=== PATIENT | female | born 1955 | race Caucasian/White ===

== ENCOUNTER 2024-05-03 16:56 | Emergency (ER) | payer OTHER, SELFPAY ==
[2024-05-03 17:11] VITALS: BP 153/77
--- NOTE | 2024-05-03 17:11 | ED.GENMED ---
ED Provider Triage
<Kel Alexander PA-C - Last Filed: 05/03/24 17:23>
-
Patient seen by provider in Triage?: Seen in Triage
69-year-old female presents via EMS from [facility] with vomiting. She vomited twice yesterday but since then has been feeling okay. She denies any current chest pain abdominal pain or shortness of breath. No urinary symptoms. No complaints
offer however patient is a poor historian
Workup initiated through triage with basic labs. Vital signs are stable. Note from provider at facility requesting imaging studies of her abdomen. CT pending
Seen by provider in triage but warrants further assessment
History of Present Illness
<Kel Alexander PA-C - Last Filed: 05/03/24 17:23>
General
Chief Complaint: Abdominal Symptoms
Time Seen by Provider: 05/03/24 20:47
<Dann Woodward DO, Resident - Last Filed: 05/03/24 23:21>
General
Source: patient and records
History of Present Illness
History of Present Illness:
69 female with a past medical history of seizure disorder, reportedly on Dilantin (but unsure) presents from [facility] for 2 episodes of vomiting yesterday. Patient is a poor historian. Patient reports she had 2 isolated episodes of vomiting
yesterday, nonbloody, nonprojectile. Patient reports she has had no sick contacts that she is aware of. Reports no abnormal food eaten that she is aware of. In the emergency department patient says she has no active symptoms at this time.
Patient denies any diarrhea, no nausea, denies fever, denies abdominal pain, no shortness of breath, no chest pain. Per EMS she has a history of liver cirrhosis and had 1 episode of desaturation to the 80s requiring 2 L nasal cannula.
Past History
<Dann Woodward DO, Resident - Last Filed: 05/03/24 23:21>
Past History
ED Past Medical History: Seizures
Review of Systems
<Dann Woodward DO, Resident - Last Filed: 05/03/24 23:21>
Review of Systems
Constitutional: Reports no symptoms; Denies fever, fatigue or chills
Respiratory: Reports no symptoms
Cardiac: Reports no symptoms
ABD/GI: Reports vomiting; Denies abdominal pain, nausea or diarrhea
: Reports no symptoms
Musculoskeletal: Reports edema
Phy Exam
<Dann Woodward DO, Resident - Last Filed: 05/03/24 23:21>
General Physical Exam
General Presentation: well appearing and no apparent distress
General Skin: warm and dry
Cardiovascular Exam
Cardiovascular Exam: regular rate/rhythm and systolic murmur (Systolic murmur heard on exam)
Pulmonary Exam
Pulmonary Exam: other (Could not auscultate due to poor respiratory effort.)
Gastrointestinal Exam
Gastrointestinal Exam: non tender, soft, distended and other (Abdomen soft, nontender to palpation. No rebound, no guarding. Abdomen is diffusely distended. No fluid shift present.)
Musculoskeletal Exam
Musculoskeletal Exam: edema (+3 edema bilateral lower extremities)
Skin Exam
Skin Exam: other (Red, angry looking blotchy rash present along bilateral buttocks and inner thighs)
Course
<Kel Alexander PA-C - Last Filed: 05/03/24 17:23>
Orders/Labs/Results
Orders:
Orders
05/03/24 17:44
Complete Blood Count/With Diff Urgent
Comprehensive Metabolic Panel Urgent
Lipase Urgent
05/03/24 21:27
US Abdomen Complete/Upper Urgent
Comment:
Reason For Exam: Abnormal LFTs, abdominal distention
05/04/24 00:00
CT Abd/pelvis W Iv Cont Urgent
Comment: Pancreatic protocol please
Reason For Exam: Pancreatic cyst, abdominal distention, cirrhosis
Abnormal Lab Results
05/03/24
17:44
RBC 3.24 L 10^6/uL
(4.20-5.40)
Hct 36.0 L %
(37.0-47.0)
MCV 111.1 H fL
(81.0-99.0)
MCH 38.3 H pg
(27.0-31.0)
RDW 15.3 H %
(11.5-14.5)
Plt Count 84 L 10^3/uL
(130-400)
Absolute Lymphs (auto) 1.1 L 10^3/uL
(1.2-3.4)
Lymphocytes % 14.5 L %
(20.5-51.1)
BUN 18 H mg/dl
(7-17)
Total Bilirubin 2.4 H mg/dl
(0.2-1.3)
AST 54 H U/L
(14-36)
ALT 43 H U/L
(0-35)
Albumin 2.9 L g/dl
(3.5-5.0)
05/03/24 17:44
05/03/24 17:44
Vital Signs
Initial and Last Documented VS:
Initial Vital Signs
Temp Pulse Resp BP Pulse Ox
98.1 F 74 16 153/77 95
05/03/24 17:11 05/03/24 17:11 05/03/24 17:11 05/03/24 17:11 05/03/24 17:11
Last Documented Vital Signs
Temp Pulse Resp BP Pulse Ox
98.1 F 75 19 110/75 95
05/03/24 17:11 05/03/24 22:11 05/03/24 22:11 05/04/24 01:00 05/04/24 01:00
<Dnan Fekete, DO, Resident - Last Filed: 05/03/24 23:21>
Orders/Labs/Results
Orders:
Orders
05/03/24 17:44
Complete Blood Count/With Diff Urgent
Comprehensive Metabolic Panel Urgent
Lipase Urgent
05/03/24 21:27
US Abdomen Complete/Upper Urgent
Comment:
Reason For Exam: Abnormal LFTs, abdominal distention
05/04/24 00:00
CT Abd/pelvis W Iv Cont Urgent
Comment: Pancreatic protocol please
Reason For Exam: Pancreatic cyst, abdominal distention, cirrhosis
Abnormal Lab Results
05/03/24
17:44
RBC 3.24 L 10^6/uL
(4.20-5.40)
Hct 36.0 L %
(37.0-47.0)
MCV 111.1 H fL
(81.0-99.0)
MCH 38.3 H pg
(27.0-31.0)
RDW 15.3 H %
(11.5-14.5)
Plt Count 84 L 10^3/uL
(130-400)
Absolute Lymphs (auto) 1.1 L 10^3/uL
(1.2-3.4)
Lymphocytes % 14.5 L %
(20.5-51.1)
BUN 18 H mg/dl
(7-17)
Total Bilirubin 2.4 H mg/dl
(0.2-1.3)
AST 54 H U/L
(14-36)
ALT 43 H U/L
(0-35)
Albumin 2.9 L g/dl
(3.5-5.0)
05/03/24 17:44
05/03/24 17:44
Vital Signs
Initial and Last Documented VS:
Initial Vital Signs
Temp Pulse Resp BP Pulse Ox
98.1 F 74 16 153/77 95
05/03/24 17:11 05/03/24 17:11 05/03/24 17:11 05/03/24 17:11 05/03/24 17:11
Last Documented Vital Signs
Temp Pulse Resp BP Pulse Ox
98.1 F 75 19 110/75 95
05/03/24 17:11 05/03/24 22:11 05/03/24 22:11 05/04/24 01:00 05/04/24 01:00
<Noam Nuñez MD - Last Filed: 05/04/24 01:48>
Orders/Labs/Results
Orders:
Orders
05/03/24 17:44
Complete Blood Count/With Diff Urgent
Comprehensive Metabolic Panel Urgent
Lipase Urgent
05/03/24 21:27
US Abdomen Complete/Upper Urgent
Comment:
Reason For Exam: Abnormal LFTs, abdominal distention
05/04/24 00:00
CT Abd/pelvis W Iv Cont Urgent
Comment: Pancreatic protocol please
Reason For Exam: Pancreatic cyst, abdominal distention, cirrhosis
Abnormal Lab Results
05/03/24
17:44
RBC 3.24 L 10^6/uL
(4.20-5.40)
Hct 36.0 L %
(37.0-47.0)
MCV 111.1 H fL
(81.0-99.0)
MCH 38.3 H pg
(27.0-31.0)
RDW 15.3 H %
(11.5-14.5)
Plt Count 84 L 10^3/uL
(130-400)
Absolute Lymphs (auto) 1.1 L 10^3/uL
(1.2-3.4)
Lymphocytes % 14.5 L %
(20.5-51.1)
BUN 18 H mg/dl
(7-17)
Total Bilirubin 2.4 H mg/dl
(0.2-1.3)
AST 54 H U/L
(14-36)
ALT 43 H U/L
(0-35)
Albumin 2.9 L g/dl
(3.5-5.0)
05/03/24 17:44
05/03/24 17:44
Vital Signs
Initial and Last Documented VS:
Initial Vital Signs
Temp Pulse Resp BP Pulse Ox
98.1 F 74 16 153/77 95
05/03/24 17:11 05/03/24 17:11 05/03/24 17:11 05/03/24 17:11 05/03/24 17:11
Last Documented Vital Signs
Temp Pulse Resp BP Pulse Ox
98.1 F 75 19 110/75 95
05/03/24 17:11 05/03/24 22:11 05/03/24 22:11 05/04/24 01:00 05/04/24 01:00
<Dann Woodward DO, Resident - Last Filed: 05/03/24 23:21>
MDM/Problems Addressed
Differential Diagnosis Includes:
Food poisoning, acute viral GI illness, idiopathic vomiting
MDM/Problems Addressed:
69 female past medical history of seizures on Dilantin (patient unsure) with no recent seizures presents for 2 episodes of nonbloody, nonprojectile vomiting yesterday.
Patient was sent here from [facility] via ambulance. Patient reports she has had no known sick contacts she is aware of and has not eaten anything abnormal that she is aware of.
Patient reports she has had no episodes of vomiting today. In the emergency department she reports she has no current symptoms. Patient denies nausea associated with her vomiting, has had no diarrhea, no fever, no shortness of breath, no abdominal
pain. Does admit to lower extremity edema.
Emergency department patient is hypertensive, afebrile, other vitals within normal limits.
Physical exam demonstrates a benign but distended abdomen. No rebound, no guarding. Nontender to palpation in all quadrants. Abdomen is grossly distended, no fluid shift. Heart had a systolic murmur. Lungs were unable to be auscultated due to
poor respiratory effort by patient. +3 lower extremity edema bilateral.
White count within normal limits, hemoglobin within normal limits, chemistry did demonstrate elevated T bilirubin, slightly elevated LFTs and low albumin
Unsure etiology of patient's vomiting. Could be secondary to viral GI illness, could be food poisoning, could be isolated episodes of vomiting.
At this point she has no symptoms, no nausea, no diarrhea. Will hold off on antiemetics at this time
Per EMS has a past medical history of liver cirrhosis, also had 1 isolated episode of desaturation to the requiring 2 L O2 prior to arrival
Patient currently satting 95% on room air
Will check ultrasound abdomen complete
Complete abdominal ultrasound demonstrated hepatic cirrhosis with no discrete hepatic lesions. Also demonstrated pancreatic tail mass measuring approximately 2.6 cm with additional pancreatic cyst present. Neoplasm not excluded.
CT abdomen pelvis with IV contrast to further evaluate
<Dann Woodward DO, - Last Filed: 05/03/24 23:21>
*Critical Care Note
Total Time (30-74mins, 75-104mins- exclusive of procedures): Not Applicable
ED Attending Note
<Kel Alexander PA-C - Last Filed: 05/03/24 17:23>
-
Portions of this chart may have been created with voice recognition software.� Occasional wrong word or��sound alike� substitutions may have occurred due to the inherent limitations of voice recognition software.
<Noam Nuñez MD - Last Filed: 05/04/24 01:48>
ED Attending Note
Patient seen and examined by attending physician: Yes
ED Attending Note:
Patient with history of seizure disorder and liver cirrhosis, [facility] from [facility] secondary to multiple episodes of vomiting this evening. Denies fever or chills. Denies abdominal pain. Denies diarrhea. Denies change in bowel
habits. Denies recent change in medications or diet. Denies previous history of similar symptoms. Denies abdominal distention. Denies sick contact. Denies recent travel.
Physical Exam
General: no apparent distress, not acutely ill. afebrile
Head: nc/at. eomi
Neck: supple. no meningeal signs.
Heart: s1/s2 regular rate and rhythm, no murmur. equal radial pulses.
Lungs: no acute respiratory distress. clear bilaterally
Abdomen: normal bowel sounds. not tender, with mild distention
Neuro: alert and oriented. no focal neurological deficits
Skin: no rash
Psychiatric: well kept. interactive and cooperative
Extremities: LE b/l edema.
Patient with an unremarkable workup in ED, including blood work, ultrasound, and CT scan, which was obtained secondary to abnormal findings noted on ultrasound. Otherwise, patient remains asymptomatic, without any vomiting episodes during extended
course of observation ED. Repeat abdominal exam: Soft and nontender. Patient with nonspecific vomiting episodes prior to arrival, which may be viral versus gastritis versus food reaction. Patient otherwise is afebrile and hemodynamically stable,
at time of discharge
Discharge Plan
Departure
Patient Disposition: Detention/SNF
Date of Disposition: 05/04/24
Time of Disposition: 01:38
Patient with high blood pressure during this ER visit?: Yes
Discharge Problem:
Nausea & vomiting
Instructions: Nausea and Vomiting, Adult (DC)
Prescriptions:
New
ondansetron 4 mg Tablet,Disintegrating
4 mg PO TIDPRN PRN (Reason: nausea/vomiting) Qty: 12 0RF
No Action
fluticasone propion-salmeterol [Wixela Inhub] 250-50 mcg/dose Blister With Device
1 inh INHALATION R BID
sennosides [senna] 8.6 mg Tablet
17.2 mg PO BID
acetaminophen 325 mg Tablet
325 mg PO TID
albuterol sulfate 2.5 mg /3 mL (0.083 %) Solution For Nebulization
2.5 mg INHALATION R Q4HWA
Patient Comments:
05/03/24: to take for 3 days, from 05/03/24-05/06/24
levetiracetam 500 mg Tablet
250 mg PO BID
hydrocortisone 1 % Cream
1 applic TOPICAL [id number] PRN (Reason: eczema)
Rx Instructions:
right upper ear/eyebrow
levothyroxine 50 mcg Tablet
50 mcg PO DAILY
nadolol 40 mg Tablet
40 mg PO DAILY
furosemide 20 mg Tablet
20 mg PO DAILY
albuterol sulfate 90 mcg/actuation Hfa Aerosol Inhaler
2 puff INHALATION R BID
loratadine 10 mg Tablet
10 mg PO DAILY
spironolactone 50 mg Tablet
50 mg PO DAILY
Cepacol Lozenge
1 umberto MUCOUS MEMBRANE Q4HPRN PRN (Reason: sore throat)
lactulose 10 gram/15 mL Solution
30 g PO QID
zinc sulfate 50 mg zinc (220 mg) Capsule
50 mg PO DAILY
cholecalciferol (vitamin D3) [Vitamin D3] 25 mcg (1,000 unit) Tablet
50 mcg PO DAILY
Visbiome 112.5 billion cell Capsule
1 cap PO DAILY
diclofenac sodium 1 % Gel
2 g TOPICAL BID
Xifaxan 550 mg Tablet
550 mg PO BID
Activity Restrictions/Additional Instructions:
As discussed, please follow-up with your primary care physician for further evaluation and treatment. Please consider return to ED with worsening symptoms, i.e. fever/abdominal pain/persistent vomiting.
Interventions
Interventions:
*Risk Screen - Suicide Last Done: 05/03/24 17:11
*Neglect/Abuse Screening Last Done: 05/03/24 17:11
ED- Fall Risk Assessment Last Done: 05/03/24 22:11
RL-Cslmsn-[id number] Assessment Last Done: 05/03/24 22:11
Discharge Date and Time
Print Language: [id number]
[2024-05-03 18:21] LABS: ALT (SGPT) 43 U/L (0-35); AST (SGOT) 54 U/L (14-36); Albumin 2.9 g/dl (3.5-5.0); Alkaline Phosphatase 89 U/L (38-126); Blood Urea Nitrogen 18 mg/dl (7-17); Calcium 8.6 mg/dl (8.4-10.2); Carbon Dioxide 25 mmol/L (22-30); Chloride 106 mmol/L (98-107); Glucose 91 mg/dl (70-99); Lipase 228 U/L (23-300); Potassium 3.6 mmol/L (3.5-5.1); Sodium 137 mmol/L (135-145); Total Bilirubin 2.4 mg/dl (0.2-1.3); Total Protein 6.3 g/dl (6.3-8.2); eGFR > 60.00
[2024-05-03 18:37] LABS: % Basophils 0.4 % (0-2); % Eosinophils 2.7 % (0-6); % Immature Granulocytes 0.4 % (0-0.5); % Lymphocytes 14.5 % (20.5-51.1); % Monocytes 7.1 % (1.7-9.3); % Neutrophils 74.9 % (42.2-75.2); Absolute Eosinophils 0.2 10^3/uL (0-0.7); Absolute Lymphocytes 1.1 10^3/uL (1.2-3.4); Absolute Monocytes 0.6 10^3/uL (0.1-0.6); Absolute Neutrophils 5.9 10^3/uL (1.4-6.5); Mean Platelet Volume 10.4 fL (7.4-10.4); Nucleated Red Blood Cells % 0 %; Platelet Count 84 10^3/uL (130-400)
[2024-05-03 18:39] LABS: Hemoglobin 12.4 g/dL (12.0-16.0); Mean Corp Hgb Conc. 34.4 g/dL (33.0-37.0); Mean Corpuscular Hgb 38.3 pg (27.0-31.0); Mean Corpuscular Volume 111.1 fL (81.0-99.0); Red Blood Cell Count 3.24 10^6/uL (4.20-5.40); Red Cell Dist. Width 15.3 % (11.5-14.5); White Blood Cell Count 7.8 10^3/uL (4.8-10.8)
[2024-05-03 22:11] VITALS: BP 124/80
[2024-05-04 00:33] VITALS: BP 118/78
[2024-05-04 01:00] VITALS: BP 110/75
[2024-05-04 02:00] VITALS: BP 109/75
== END 2024-05-04 03:19 ==
LOC: EMR 16:56
PROVIDERS: Physician Assistant; EMERGENCY PHYSICIAN Emergency Medicine; FAMILY PHYSICIAN Internal Medicine
DX: R11.2 Nausea with vomiting, unspecified (principal); K74.60 Unspecified cirrhosis of liver; G40.909 Epilepsy, unspecified, not intractable, without status epilepticus; R60.0 Localized edema
CPT/HCPCS: 99284; 74177; 76700; 80053; 83690; 85025; Q9967

== ENCOUNTER → 2024-05-21 08:36 | Outpatient (REF) | payer MEDICARE, SELFPAY | LOC: MRI 08:36 | PROVIDERS: ATTENDING PHYSICIAN Nurse Practitioner Family; FAMILY PHYSICIAN Internal Medicine | DX: K74.60 Unspecified cirrhosis of liver (principal) | CPT/HCPCS: 74183; A9575 ==